=== PATIENT | female | born 1990 | race Caucasian/White ===

== ENCOUNTER 2018-04-26 20:51 | Emergency (ER) | payer BC, MEDICAID ==
[~2018-04-26] VITALS: Ht 167.6 cm; Wt 106.3 kg
[~2018-04-26 20:51] MED LIST: HYDR-3240 PO; SUCR1TAB33 PO
[2018-04-26 20:55] VITALS: BP 139/90
== END 2018-04-26 22:15 | disposition home or self-care (01) ==
LOC: ED 22:10
DX: G43.909 Migraine, unspecified, not intractable, without status migrainosus (principal); Z76.0 Encounter for issue of repeat prescription; Z90.49 Acquired absence of other specified parts of digestive tract
CPT/HCPCS: 99283

== ENCOUNTER 2018-07-24 13:19 | Inpatient (IN) | payer MEDICAID ==
[~2018-07-24] VITALS: Ht 167.6 cm; Wt 108.1 kg
[2018-07-24] MEDS ORDERED: CLINDAMYCIN 150 MG/ML, 6ML IV ONE ×2 (14:00→14:30)
[2018-07-24] MEDS ORDERED: VANCOMYCIN PER PHARMACY MC ONE (14:00)
[2018-07-24] MEDS ORDERED: ONDANSETRON 2MG/ML, 2ML IVPush ONE (14:00)
[2018-07-24] MEDS ORDERED: SODIUM CHLORIDE 0.9% 1,000ML IVBOLUS ONE (14:00)
[2018-07-24] MEDS ORDERED: ONDANSETRON ODT 4 MG ONE (14:17)
[2018-07-24] MEDS ORDERED: MORPHINE SULFATE 4 MG/ML, 1ML ONE (14:17)
[2018-07-24 14:20] LABS: BASOPHILS # (AUTO) 0.02 x10^3/uL (0-0.1); BASOPHILS % (AUTO) 0 % (0-1); EOSINOPHILS # (AUTO) 0.03 x10^3/uL (0-0.4); EOSINOPHILS % (AUTO) 1 % (1-7); LYMPHOCYTES # (AUTO) 0.91 x10^3/uL (1-3.4); LYMPHOCYTES % (AUTO) 13 % (22-44); MD NO; MEAN CORPUSCULAR HEMOGLOBIN 30.8 pg (27.0-34.8); MEAN CORPUSCULAR HGB CONC 34.4 g/dL (32.4-35.8); MEAN CORPUSCULAR VOLUME 89.6 fL (80-100); MEAN PLATELET VOLUME 8.1 fL (7.4-10.4); MONOCYTES # (AUTO) 0.35 x10^3/uL (0.2-0.8); MONOCYTES % (AUTO) 5 % (2-9); NEUTROPHILS # (AUTO) 5.81 x10^3/uL (1.8-6.8); NEUTROPHILS % (AUTO) 82 % (42-75); PLATELET COUNT 280 x10^3/uL (130-400); RED BLOOD COUNT 5.02 x10^6/uL (3.82-5.3); RED CELL DISTRIBUTION WIDTH 13.3 % (9.6-15.2)
[2018-07-24] MEDS ORDERED: CLINDAMYCIN PMX 900MG/50ML 50 ML IV ONE (14:30)
[2018-07-24] MEDS ORDERED: CLINDAMYCIN PMX 600MG/50ML 50 ML IV ONE (14:30)
[2018-07-24] MEDS ORDERED: VANCOMYCIN 1,500 MG in SODIUM CHLORIDE 0.9% 250 ML IV ONE (14:30)
[2018-07-24] MEDS ORDERED: MORPHINE SULFATE 4 MG/ML, 1ML IVPush ONE (14:30)
[2018-07-24 14:32] LABS: ALANINE AMINOTRANSFERASE 28 U/L (12-78); ALBUMIN 3.9 g/dL (3.4-5.0); ANION GAP 4 mmol/L (5-15); CALCIUM 8.4 mg/dL (8.5-10.1); CHLORIDE 107 mmol/L (98-107)
[2018-07-24 14:37] LABS: ALKALINE PHOSPHATASE 79 U/L (45-117); BILIRUBIN,TOTAL 0.8 mg/dL (0.2-1.0); CREATININE 0.76 mg/dL (0.55-1.02); TOTAL PROTEIN 7.8 g/dL (6.4-8.2)
[2018-07-24] MEDS ORDERED: OMNIPAQUE 350 MG/ML, 100ML BOTTLE ONE (15:03)
[2018-07-24 15:11] LABS: MICROSCOPIC INDICATED
[2018-07-24 15:19] LABS: CULTURE INDICATED? YES
[2018-07-24 16:58] LABS: CLUE CELLS NONE SEEN (NONE SEEN); WET PREP WBCS MANY (FEW)
[2018-07-24] MEDS ORDERED: ONDANSETRON 2MG/ML, 2ML IVPush PRN (17:30)
[2018-07-24] MEDS: SODIUM CHLORIDE 0.9% 1,000 ML IV SCH (18:07)
[2018-07-24] MEDS: KETOROLAC 30 MG/1 ML IV PRN (18:07)
[2018-07-24 18:10] VITALS: BP 112/75
[2018-07-24] MEDS: PIPERACILLIN/TAZO/PMX 3.375GM 50 ML IV SCH (18:34)
[2018-07-24] MEDS: DIPHENHYDRAMINE 25 MG CAPSULE PO PRN (21:24)
[2018-07-24] MEDS: LINEZOLID PMX 600MG/300ML 300 ML IV SCH (21:28)
[2018-07-24 21:29] VITALS: BP 99/64
[2018-07-25] MEDS: PIPERACILLIN/TAZO/PMX 3.375GM 50 ML IV SCH ×4 (00:22→17:45)
[2018-07-25] MEDS: KETOROLAC 30 MG/1 ML IV PRN ×3 (00:22→16:28)
[2018-07-25 00:28] VITALS: BP 101/67
[2018-07-25] MEDS: SODIUM CHLORIDE 0.9% 1,000 ML IV SCH ×3 (03:01→21:17)
[2018-07-25 05:42] LABS: ALANINE AMINOTRANSFERASE 39 U/L (12-78); ALBUMIN 2.7 g/dL (3.4-5.0); CHLORIDE 112 mmol/L (98-107); CREATININE 0.67 mg/dL (0.55-1.02)
[2018-07-25 05:45] LABS: ALKALINE PHOSPHATASE 71 U/L (45-117); BILIRUBIN,TOTAL 0.6 mg/dL (0.2-1.0); TOTAL PROTEIN 5.5 g/dL (6.4-8.2)
[2018-07-25 05:46] LABS: BASOPHILS # (AUTO) 0.02 x10^3/uL (0-0.1); BASOPHILS % (AUTO) 1 % (0-1); EOSINOPHILS # (AUTO) 0.04 x10^3/uL (0-0.4); EOSINOPHILS % (AUTO) 1 % (1-7); LYMPHOCYTES # (AUTO) 0.99 x10^3/uL (1-3.4); LYMPHOCYTES % (AUTO) 29 % (22-44); MD NO; MEAN CORPUSCULAR HEMOGLOBIN 31.2 pg (27.0-34.8); MEAN CORPUSCULAR HGB CONC 34.8 g/dL (32.4-35.8); MEAN CORPUSCULAR VOLUME 89.6 fL (80-100); MEAN PLATELET VOLUME 8.1 fL (7.4-10.4); MONOCYTES # (AUTO) 0.26 x10^3/uL (0.2-0.8); MONOCYTES % (AUTO) 8 % (2-9); NEUTROPHILS # (AUTO) 2.06 x10^3/uL (1.8-6.8); NEUTROPHILS % (AUTO) 61 % (42-75); PLATELET COUNT 183 x10^3/uL (130-400); RED BLOOD COUNT 3.91 x10^6/uL (3.82-5.3); RED CELL DISTRIBUTION WIDTH 13.3 % (9.6-15.2)
[2018-07-25 06:20] LABS: ANION GAP 4 mmol/L (5-15); CALCIUM 7.2 mg/dL (8.5-10.1)
[2018-07-25 07:13] VITALS: BP 119/77
[2018-07-25] MEDS: LINEZOLID PMX 600MG/300ML 300 ML IV SCH ×2 (09:20→21:17)
[2018-07-25 11:52] LABS: CLOSTRIDIUM DIFFICILE ANTIGEN POSITIVE; CLOSTRIDIUM DIFFICILE TOXIN NEGATIVE (Negative)
[2018-07-25 13:53] VITALS: BP 139/79
[2018-07-25] MEDS: VANCOMYCIN 50 MG/ML ORAL SUSP PO SCH ×2 (13:58→17:45)
[2018-07-25 20:16] VITALS: BP 115/76
[2018-07-26] MEDS: PIPERACILLIN/TAZO/PMX 3.375GM 50 ML IV SCH ×4 (00:18→19:43)
[2018-07-26] MEDS: VANCOMYCIN 50 MG/ML ORAL SUSP PO SCH ×4 (00:18→18:44)
[2018-07-26 00:22] VITALS: BP 123/78
[2018-07-26] MEDS: KETOROLAC 30 MG/1 ML IV PRN ×3 (01:11→23:30)
[2018-07-26] MEDS: SODIUM CHLORIDE 0.9% 1,000 ML IV SCH ×2 (05:44→16:09)
[2018-07-26 07:33] VITALS: BP 104/68
[2018-07-26] MEDS: [UNRECOGNIZED DRUG - OTHER] PO SCH (09:00)
[2018-07-26] MEDS ORDERED: ONDANSETRON ODT 4 MG ONE (09:08)
[2018-07-26] MEDS: VENLAFAXINE 75 MG CAP ER PO SCH (09:11)
[2018-07-26] MEDS: LINEZOLID PMX 600MG/300ML 300 ML IV SCH ×2 (09:11→21:48)
[2018-07-26 13:25] VITALS: BP 102/61
[2018-07-26 19:46] VITALS: BP 139/80
[2018-07-27] MEDS: VANCOMYCIN 50 MG/ML ORAL SUSP PO SCH ×2 (01:16→06:41)
[2018-07-27] MEDS: PIPERACILLIN/TAZO/PMX 3.375GM 50 ML IV SCH ×2 (01:16→06:41)
[2018-07-27] MEDS: SODIUM CHLORIDE 0.9% 1,000 ML IV SCH ×2 (01:17→07:56)
[2018-07-27 01:21] VITALS: BP 119/80
[2018-07-27] MEDS: DIPHENHYDRAMINE 25 MG CAPSULE PO PRN (01:27)
[2018-07-27] MEDS ORDERED: ONDANSETRON ODT 4 MG ONE (07:13)
[2018-07-27 07:15] VITALS: BP 111/64
[2018-07-27] MEDS: KETOROLAC 30 MG/1 ML IV PRN (07:20)
[2018-07-27] MEDS: [UNRECOGNIZED DRUG - OTHER] PO SCH (09:00)
[2018-07-27] MEDS: VENLAFAXINE 75 MG CAP ER PO SCH (09:00)
[2018-07-27] MEDS: LINEZOLID PMX 600MG/300ML 300 ML IV SCH (09:01)
[2018-07-27] MEDS ORDERED: SULF1TAB24 PO (11:14)
[2018-07-27] MEDS ORDERED: VANC1VIA3 PO (17:57)
== END 2018-07-27 12:55 | disposition home or self-care (01) | DRG 372 ==
LOC: ED 15:01 → EDIP 16:21 → 4WST 17:25
PROVIDERS: ADMIT Hospitalist; ATTEND Internal Medicine
PROC: 0T9B70Z Drainage of Bladder with Drainage Device, Via Natural or Artificial Opening (ICD-10-PCS; principal; 2018-07-24)
DX: A04.72 Enterocolitis due to Clostridium difficile, not specified as recurrent (principal); N10 Acute pyelonephritis; E86.9 Volume depletion, unspecified; N83.201 Unspecified ovarian cyst, right side; Z90.49 Acquired absence of other specified parts of digestive tract; Z98.51 Tubal ligation status; N93.9 Abnormal uterine and vaginal bleeding, unspecified; F32.9 Major depressive disorder, single episode, unspecified; F12.90 Cannabis use, unspecified, uncomplicated; Z88.8 Allergy status to other drugs, medicaments and biological substances
CPT/HCPCS: 36415; 99285; J3370; 71045; 74177; 80053; 81001; 83605; 83735; 84100; 84703; 85025; 87040; 87086; 87210; 87324; 87491; 87493; 87591; 87808; 93005; 96374; 96375; G0378; J1885; J2020; J2405; J2543; Q9967; J7030; J7050; Q0163

== ENCOUNTER → 2018-09-21 | Outpatient (CLI) | payer MEDICAID ==
[~2018-09-21] MED LIST changes: +GADOBUTROL 10 MMOL/10 ML PFS ONE; +SULF1TAB24 PO; +VANC1VIA3 PO
== END | disposition home or self-care (01) ==
LOC: CFH 10:00
PROVIDERS: ATTEND Registered Nurse
DX: F32.2 Major depressive disorder, single episode, severe without psychotic features (principal)
CPT/HCPCS: 70553; A9585

== ENCOUNTER 2019-01-28 13:38 | Outpatient (CLI) | payer MEDICAID ==
[~2019-01-28 13:38] MED LIST changes: -GADOBUTROL 10 MMOL/10 ML PFS ONE
[2019-01-28] MEDS ORDERED: Will bring list DOS (14:10)
[2019-02-09] MEDS ORDERED: HYDROmorphone 2 MG/ML, 1ML IVPush PRN (13:30)
[2019-02-09] MEDS ORDERED: OXYcodone 5 MG/5 ML ORAL.SOL UDC PO PRN (13:30)
[2019-02-09] MEDS ORDERED: FENTANYL PF 100 MCG/2ML IV PRN (13:30)
[2019-02-09] MEDS ORDERED: hydrALAzine 20 MG/ML, 1ML IV PRN (13:30)
[2019-02-09] MEDS ORDERED: PROMETHAZINE 25 MG/ML, 1ML IV PRN (13:30)
[2019-02-09] MEDS ORDERED: PROCHLORPERAZINE 5 MG/ML, 2ML IV PRN (13:30)
[2019-02-09] MEDS ORDERED: DIPHENHYDRAMINE 50 MG/ML, 1ML IVPush PRN (13:30)
[2019-02-09] MEDS ORDERED: MEPERIDINE/PF 25MG/0.5ML IVPush PRN (13:30)
[2019-02-09] MEDS ORDERED: LABETALOL 5MG/ML, 20ML IV PRN (13:30)
[2019-02-09] MEDS ORDERED: METOPROLOL 1 MG/ML, 5ML IV PRN (13:30)
[2019-02-09] MEDS ORDERED: HALOPERIDOL 5 MG/ML IV PRN (13:30)
== END 2019-01-28 23:59 | disposition home or self-care (01) ==
LOC: STAR 13:38
PROVIDERS: ATTEND Specialist
DX: Z02.9 Encounter for administrative examinations, unspecified (principal)

== ENCOUNTER 2019-02-09 13:26 | Inpatient (IN) | payer MEDICAID ==
[~2019-02-09] VITALS: Ht 167.6 cm; Wt 108.3 kg
[~2019-02-09 13:26] MED LIST changes: +Will bring list DOS
[2019-02-09] MEDS ORDERED: LACTATED RINGERS 1,000 ML IV SCH (13:40)
[2019-02-09] MEDS ORDERED: GABAPENTIN 300 MG CAPSULE PO ONE (14:00)
[2019-02-09] MEDS ORDERED: ACETAMINOPHEN 500 MG TABLET PO ONE (14:00)
[2019-02-09 14:01] VITALS: BP 128/90
[2019-02-09] MEDS ORDERED: GABA300C10 PO (14:06)
[2019-02-09] MEDS ORDERED: [UNRECOGNIZED DRUG - OTHER] PO (14:06)
[2019-02-09] MEDS ORDERED: ZOLP10TA5 PO (14:06)
[2019-02-09] MEDS ORDERED: VENL75TA2 PO (14:06)
[2019-02-09] MEDS ORDERED: CYCL-259 PO (14:06)
[2019-02-09] MEDS ORDERED: LAMO25TA6 PO (14:06)
[2019-02-09 14:09] LABS: HCG UR SG 1.022 (1.003-1.030)
[2019-02-09] MEDS ORDERED: PHENAZOPYRIDINE 200 MG TABLET PO ONE (14:30)
[2019-02-09] MEDS ORDERED: BUPIVACAINE/PF 0.25% ONE (15:08)
[2019-02-09] MEDS ORDERED: EPINEPHRINE 1 MG/ML, 1ML ONE (15:08)
[2019-02-09] MEDS ORDERED: FLUORESCEIN SODIUM 500 MG/5 ML ONE (15:08)
[2019-02-09] MEDS ORDERED: FENTANYL PF 250 MCG/5ML ONE (15:18)
[2019-02-09] MEDS ORDERED: MIDAZOLAM 1 MG/ML, 2ML ONE (15:18)
[2019-02-09] MEDS ORDERED: HYDROmorphone 2 MG/ML, 1ML IVPush PRN (17:00)
[2019-02-09] MEDS ORDERED: MEPERIDINE/PF 25MG/0.5ML IVPush PRN (17:00)
[2019-02-09] MEDS ORDERED: OXYcodone 5 MG/5 ML ORAL.SOL UDC PO PRN (17:00)
[2019-02-09] MEDS ORDERED: ONDANSETRON 2MG/ML, 2ML IV PRN (17:00)
[2019-02-09] MEDS ORDERED: ONDANSETRON ODT 8 MG PO PRN (17:00)
[2019-02-09] MEDS ORDERED: PROMETHAZINE 25 MG/ML, 1ML IV PRN (17:00)
[2019-02-09] MEDS ORDERED: DIAZEPAM 5 MG/ML, 2ML IVPush PRN (17:00)
[2019-02-09] MEDS ORDERED: LORazepam 2 MG/ML, 1ML IVPush PRN (17:00)
[2019-02-09] MEDS ORDERED: ONDANSETRON 2MG/ML, 2ML ONE (18:28)
[2019-02-09] MEDS ORDERED: CEFAZOLIN 1,000 MG ONE (18:28)
[2019-02-09] MEDS ORDERED: NEOSTIGMINE 1 MG/ML, 10ML ONE (18:28)
[2019-02-09] MEDS ORDERED: ROCURONIUM 10MG/ML,5ML ONE (18:28)
[2019-02-09] MEDS ORDERED: PROPOFOL 10 MG/ML, 20ML ONE (18:28)
[2019-02-09] MEDS ORDERED: GLYCOPYRROLATE 0.2MG/1ML, 5ML ONE (18:28)
[2019-02-09] MEDS ORDERED: SUCCINYLCHOLINE 20 MG/ML, 10ML ONE (18:28)
[2019-02-09] MEDS ORDERED: KETOROLAC 30 MG/1 ML ONE (18:32)
[2019-02-09] MEDS ORDERED: LORazepam 2 MG/ML, 1ML ONE (18:41)
[2019-02-09] MEDS ORDERED: FENTANYL PF 100 MCG/2ML ONE ×2 (18:41→18:44)
[2019-02-09] MEDS ORDERED: OXYcodone 5 MG/5 ML ORAL.SOL UDC ONE ×2 (18:41→18:44)
[2019-02-09] MEDS: FENTANYL PF 100 MCG/2ML IV PRN ×2 (18:44→19:00)
[2019-02-09] MEDS ORDERED: HYDROmorphone 1 MG/ML, 1ML ONE ×2 (18:44)
[2019-02-09 20:00] VITALS: BP 124/81
[2019-02-09] MEDS ORDERED: MEPERIDINE/PF 100 MG/ML IM PRN (20:30)
[2019-02-09] MEDS: HYDROmorphone 2 MG/ML, 1ML IV PRN ×2 (21:07→21:30)
[2019-02-09] MEDS: LORazepam 2 MG/ML, 1ML IVPush PRN (22:18)
[2019-02-09] MEDS: SIMETHICONE 80 MG CHEW TAB PO SCH (22:53)
[2019-02-09] MEDS: KETOROLAC 30 MG/1 ML IV SCH (22:55)
[2019-02-09] MEDS: CEFAZOLIN PMX 2GM/50ML 50 ML IVPB SCH (22:56)
[2019-02-09] MEDS: OXYcodone 5 MG/5 ML ORAL.SOL UDC PO PRN (23:04)
[2019-02-09] MEDS: ONDANSETRON 2MG/ML, 2ML IV PRN (23:57)
[2019-02-10 00:30] VITALS: BP 112/74
[2019-02-10] MEDS: HYDROmorphone 2 MG/ML, 1ML IV PRN (01:51)
[2019-02-10] MEDS: LORazepam 2 MG/ML, 1ML IVPush PRN ×3 (04:00→15:54)
[2019-02-10] MEDS: POTASSIUM CHLORIDE 20 MEQ in D5%-LACTATED RINGERS 1,000 ML IV SCH ×4 (04:12→22:32)
[2019-02-10 04:21] VITALS: BP 126/87
[2019-02-10] MEDS: KETOROLAC 30 MG/1 ML IV SCH ×3 (06:43→16:45)
[2019-02-10] MEDS: CEFAZOLIN PMX 2GM/50ML 50 ML IVPB SCH (06:44)
[2019-02-10 07:07] VITALS: BP 119/73
[2019-02-10] MEDS: ONDANSETRON 2MG/ML, 2ML IV PRN ×2 (08:23→20:16)
[2019-02-10] MEDS: SIMETHICONE 80 MG CHEW TAB PO SCH ×3 (08:23→20:13)
[2019-02-10] MEDS ORDERED: OPIUM/BELLADONNA SUPP.RECT 16.2-30 MG PR PRN ×2 (08:30→09:30)
[2019-02-10] MEDS ORDERED: SCOPOLAMINE PATCH, 1.5MG PATCH.TD72 TD SCH (08:30)
[2019-02-10 13:27] VITALS: BP 114/72
[2019-02-10] MEDS: OXYcodone 5 MG/5 ML ORAL.SOL UDC PO PRN ×3 (14:51→22:31)
[2019-02-10] MEDS ORDERED: DEXAMETHASONE 4 MG/ML, 1ML ONE (16:22)
[2019-02-10 20:28] VITALS: BP 126/73
[2019-02-10] MEDS ORDERED: VENLAFAXINE XR 37.5MG CAP.ER.24H HOMEMEDPO SCH (21:00)
[2019-02-10] MEDS ORDERED: LAMOTRIGINE 25 MG TABLET HOMEMEDPO SCH (21:00)
[2019-02-10] MEDS: LORazepam 0.5MG TABLET PO SCH (22:30)
[2019-02-10] MEDS ORDERED: IBUPROFEN 200 MG TABLET PO PRN (23:00)
[2019-02-11 00:54] VITALS: BP 123/83
[2019-02-11] MEDS: LORazepam 0.5MG TABLET PO SCH ×2 (04:00→10:02)
[2019-02-11] MEDS: POTASSIUM CHLORIDE 20 MEQ in D5%-LACTATED RINGERS 1,000 ML IV SCH ×2 (04:50→12:55)
[2019-02-11] MEDS: OXYcodone 5 MG/5 ML ORAL.SOL UDC PO PRN ×3 (05:51→14:52)
[2019-02-11 08:00] VITALS: BP 124/76
[2019-02-11] MEDS: SIMETHICONE 80 MG CHEW TAB PO SCH (08:03)
[2019-02-11] MEDS ORDERED: FAMOTIDINE 20 MG TABLET PO PRN (12:30)
[2019-02-11] MEDS ORDERED: OXYC5CAP2 PO (14:47)
[2019-02-11] MEDS ORDERED: IBUP-1222 PO (14:50)
[2019-02-11] MEDS ORDERED: LORA-445 PO (14:50)
[2019-02-11] MEDS: ONDANSETRON 2MG/ML, 2ML IV PRN (14:52)
[2019-02-11] MEDS ORDERED: SCOP1PAT11 TD (14:56)
[2019-02-11 14:59] VITALS: BP 122/76
== END 2019-02-11 15:33 | disposition home or self-care (01) | DRG 743 ==
LOC: OR 13:26 → 4NOR 19:55 → OR 23:17 → 4NOR 23:19 → OBSVTOIN 23:19 → DCLOUNGE 02-11 15:10
PROVIDERS: ADMIT Specialist; ATTEND Specialist
PROC: 0UT7FZZ Resection of Bilateral Fallopian Tubes, Via Natural or Artificial Opening With Percutaneous Endoscopic Assistance (ICD-10-PCS; 2019-02-09)
PROC: 0TJB8ZZ Inspection of Bladder, Via Natural or Artificial Opening Endoscopic (ICD-10-PCS; 2019-02-09)
PROC: 0UT9FZZ Resection of Uterus, Via Natural or Artificial Opening With Percutaneous Endoscopic Assistance (ICD-10-PCS; principal; 2019-02-09 15:30)
DX: N92.0 Excessive and frequent menstruation with regular cycle (principal); E28.2 Polycystic ovarian syndrome; G43.909 Migraine, unspecified, not intractable, without status migrainosus; N13.70 Vesicoureteral-reflux, unspecified; N94.6 Dysmenorrhea, unspecified; E66.9 Obesity, unspecified; Z79.890 Hormone replacement therapy; Z88.2 Allergy status to sulfonamides; Z98.51 Tubal ligation status; Z68.38 Body mass index [BMI] 38.0-38.9, adult
CPT/HCPCS: 36415; J3490; J7121; 81025; 85014; 85018; 88307; G0378; J0171; J0690; J1100; J1170; J1885; J2250; J2405; J2704; J2710; J3010; J3480; J0330; J2060; J7120

== ENCOUNTER 2020-03-18 11:16 | Inpatient (IN) | payer MEDICAID ==
[~2020-03-18] VITALS: Ht 167.6 cm; Wt 67.9 kg
[~2020-03-18 11:16] MED LIST changes: +CYCL-259 PO; +GABA300C10 PO; +IBUP-1222 PO; +LAMO25TA6 PO; +LORA-445 PO; +OXYC5CAP2 PO; +SCOP1PAT11 TD; +VENL75TA2 PO; +ZOLP10TA5 PO; +[UNRECOGNIZED DRUG - OTHER] PO
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
[2020-03-18] MEDS ORDERED: SODIUM CHLORIDE 0.9% 1,000ML IVBOLUS ONE (11:30)
[2020-03-18 11:59] LABS: ALANINE AMINOTRANSFERASE 20 U/L (12-78); ALBUMIN 3.9 g/dL (3.4-5.0); ANION GAP 16 mmol/L (5-15); CHLORIDE 107 mmol/L (98-107); CREATININE 1.18 mg/dL (0.55-1.02)
[2020-03-18 12:00] LABS: BASOPHILS % (AUTO) 0 % (0-1); EOSINOPHILS % (AUTO) 0 % (1-7); LYMPHOCYTES # (AUTO) 0.55 x10^3/uL (1-3.4); LYMPHOCYTES % (AUTO) 4 % (22-44); MD NO; MEAN CORPUSCULAR HEMOGLOBIN 31.7 pg (27.0-34.8); MEAN CORPUSCULAR HGB CONC 33.6 g/dL (32.4-35.8); MEAN CORPUSCULAR VOLUME 94.4 fL (80-100); MEAN PLATELET VOLUME 7.9 fL (7.4-10.4); MONOCYTES # (AUTO) 0.24 x10^3/uL (0.2-0.8); MONOCYTES % (AUTO) 2 % (2-9); NEUTROPHILS # (AUTO) 11.95 x10^3/uL (1.8-6.8); NEUTROPHILS % (AUTO) 94 % (42-75); PLATELET COUNT 302 x10^3/uL (130-400); RED BLOOD COUNT 4.39 x10^6/uL (3.82-5.3); RED CELL DISTRIBUTION WIDTH 12.6 % (9.6-15.2)
--- NOTE | 2020-03-18 12:02 | NUR ---
PT AROUSES TO VOICE, ON MONITOR VSS
[2020-03-18 12:04] LABS: ALKALINE PHOSPHATASE 69 U/L (45-117); BILIRUBIN,TOTAL 0.4 mg/dL (0.2-1.0); TOTAL PROTEIN 7.4 g/dL (6.4-8.2)
[2020-03-18 12:06] LABS: SALICYLATE LEVEL < 1.7 mg/dL (2.8-20.0)
--- NOTE | 2020-03-18 13:13 | NUR ---
Report from Camilo CAGLE. Pt resting in bed, resp even and unlabored, NADN. Continuous oxygen monitor in place, all safety measures observed.
--- NOTE | 2020-03-18 13:39 | NUR ---
pt mom: Batsheva [phone]
--- NOTE | 2020-03-18 13:45 | NUR ---
Pt shouting unintelligible words and spitting on floor. Pt encouraged to spit into emesis bag provided instead. Pt continues to yell and spit on floor. Pt again advised that this behavior will not be tolerated. Pt now holding emesis bag to spit into, all safety measures observed.
--- NOTE | 2020-03-18 14:01 | NUR ---
Pt again shouting at staff members. Pt advised that she can press the call button if she needs assistance and doesn't need to shout. Warm blanket provided to pt as she has thrown her other one on the floor. Pt has removed pulse ox, BP cuff and monitoring tech. Pt refusing to allow this RN or other staff to reapply monitors. Pt able to position self for comfort in bed, denies other needs.
[2020-03-18] MEDS ORDERED: LORazepam 2 MG/ML, 1ML ONE (14:26)
--- NOTE | 2020-03-18 14:27 | NUR ---
Pt screaming in bed, kicking her leg against the rail. Attempted to provide verbal reassurance to pt without good effect. Pt continues screaming. Multiple staff members at bedside attempting to calm pt and redirect her. Pt advised that she may hurt herself if she continues kicking her leg against the bed rail. Pt continues behavior. Security contacted, hard restraints placed x4. Continuous oxygen monitor and BP cuff reapplied, all safety measures observed. MD made aware of pt condition, orders for 2mg Ativan IM received. Pt medicated per order.
[2020-03-18] MEDS ORDERED: LORazepam 2 MG/ML, 1ML IVPush ONE (14:30)
[2020-03-18] MEDS ORDERED: HALOPERIDOL 5 MG/ML ONE (14:55)
[2020-03-18] MEDS ORDERED: HALOPERIDOL 5 MG/ML IM ONE (15:00)
--- NOTE | 2020-03-18 15:16 | NUR ---
Pt continues with intermittent outbursts of shouting and kicking, restraints remain in place, will continue to monitor.
--- NOTE | 2020-03-18 16:00 | NUR ---
Pt appears more calm. No longer continues kicking, screaming, agitation. Restraints released. All monitors remain in place at this time.
--- NOTE | 2020-03-18 17:00 | NUR ---
Pt continues resting in bed with eyes closed, resp even and unlabored, NADN.
--- NOTE | 2020-03-18 18:24 | NUR ---
Pt continues resting in bed with eyes closed, resp even and unlabored, NADN.
--- NOTE | 2020-03-18 18:25 | NUR ---
Unable to complete med rec due to pt condition.
--- NOTE | 2020-03-18 18:45 | NUR ---
REPORT FROM TSERING RUIZ. ASSUMING CARE AT THIS TIME.
--- NOTE | 2020-03-18 19:14 | NUR ---
pt resting in room with eyes closed and lights dimmed. tachy, vss. no distress noted. no needs expressed. call light within reach. will continue to monitor.
--- NOTE | 2020-03-18 20:21 | NUR ---
late entry: pt responds to voice with grunting and moaning. unable to ambulate at this time. tachy, vss.
--- NOTE | 2020-03-18 21:07 | NUR ---
[facility] ATTEMPTED TO AMBULATE PT, PT UNABLE TO AMBULATE AT THIS TIME.
--- NOTE | 2020-03-18 21:59 | NUR ---
pt responds to voice with grunting and moaning. unable to ambulate at this time. tachy, vss.
--- NOTE | 2020-03-18 22:12 | NUR ---
pt found to be attempting to dress. pt unable to stand or answer questions. pt only moans and grunts. pt unable to dress self and laid down on floor. pt unable to follow commands and refused to get back in bed. pt helped back into [place]. security called and pt placed back into 2 point restrains for safety. monitoring equipment replaced. vss.
--- NOTE | 2020-03-18 22:40 | NUR ---
pt to ct. Addendum: 03/18/20 at 2251 by [email or web address] with security.
--- NOTE | 2020-03-18 23:37 | NUR ---
pt back from ct. still arousable to voice, but confused. pt unable to ambulate at this time. vss. ct resulted. chart up for recheck. Addendum: 03/18/20 at 2339 by [email or web address] pt continues to attempt to get out of bed. pt remains in 2 point restraints for safety.
--- NOTE | 2020-03-19 00:39 | NUR ---
pt continues to attempt to get out of bed despite being in 2 point restraints. pt remains confused and is now vomiting bile that is blood-streaked. vss. edmd will be notified.
[2020-03-19] MEDS ORDERED: LORazepam 2 MG/ML, 1ML IVPush STA (00:44)
[2020-03-19] MEDS ORDERED: SODIUM CHLORIDE 0.9% 1,000 ML IV ONE (00:44)
--- NOTE | 2020-03-19 00:45 | NUR ---
late entry: pt drowsy and confused, but cooperative. pt states that she will stop attepting to get out of bed. pt aware of need for iv and is requesting medication for nausea. pt agrees to iv wtih medication. restraints removed.
[2020-03-19] MEDS ORDERED: ONDANSETRON 2MG/ML, 2ML IVPush ONE (01:00)
[2020-03-19] MEDS ORDERED: ONDANSETRON 2MG/ML, 2ML ONE ×2 (01:15→07:35)
[2020-03-19] MEDS ORDERED: LORazepam 2 MG/ML, 1ML ONE (01:15)
--- NOTE | 2020-03-19 01:24 | NUR ---
report to mitch verduzco. pt ready for transport.
[2020-03-19 01:56] VITALS: BP 104/68
[2020-03-19 02:55] LABS: BASOPHILS # (AUTO) 0.04 x10^3/uL (0-0.1); BASOPHILS % (AUTO) 0 % (0-1); EOSINOPHILS # (AUTO) 0.04 x10^3/uL (0-0.4); EOSINOPHILS % (AUTO) 0 % (1-7); LYMPHOCYTES # (AUTO) 1.71 x10^3/uL (1-3.4); LYMPHOCYTES % (AUTO) 15 % (22-44); MD NO; MEAN CORPUSCULAR HEMOGLOBIN 31.6 pg (27.0-34.8); MEAN CORPUSCULAR HGB CONC 33.7 g/dL (32.4-35.8); MEAN CORPUSCULAR VOLUME 93.9 fL (80-100); MEAN PLATELET VOLUME 8.1 fL (7.4-10.4); MONOCYTES # (AUTO) 0.57 x10^3/uL (0.2-0.8); MONOCYTES % (AUTO) 5 % (2-9); NEUTROPHILS # (AUTO) 8.86 x10^3/uL (1.8-6.8); NEUTROPHILS % (AUTO) 79 % (42-75); PLATELET COUNT 278 x10^3/uL (130-400); RED BLOOD COUNT 4.46 x10^6/uL (3.82-5.3); RED CELL DISTRIBUTION WIDTH 13.1 % (9.6-15.2)
[2020-03-19 02:56] LABS: ALANINE AMINOTRANSFERASE 22 U/L (12-78); ANION GAP 8 mmol/L (5-15); CALCIUM 9.3 mg/dL (8.5-10.1); CHLORIDE 109 mmol/L (98-107); CREATININE 0.74 mg/dL (0.55-1.02)
[2020-03-19 02:58] LABS: ALKALINE PHOSPHATASE 65 U/L (45-117); BILIRUBIN,TOTAL 0.4 mg/dL (0.2-1.0); TOTAL PROTEIN 7.6 g/dL (6.4-8.2)
[2020-03-19] MEDS ORDERED: CYCLOBENZAPRINE 10 MG TABLET PO SCH (03:30)
[2020-03-19] MEDS ORDERED: CYCLOBENZAPRINE MC SCH (03:30)
[2020-03-19] MEDS ORDERED: VENLAFAXINE HCL 75 MG PO SCH (03:30)
[2020-03-19] MEDS ORDERED: LAMOTRIGINE 25 MG PO SCH (03:30)
[2020-03-19] MEDS ORDERED: LAMOTRIGINE MC SCH (03:30)
[2020-03-19] MEDS ORDERED: VENLAFAXINE MC SCH (03:30)
[2020-03-19] MEDS ORDERED: LORazepam 0.5MG TABLET PO PRN (03:30)
[2020-03-19 07:33] VITALS: BP 104/70
[2020-03-19] MEDS ORDERED: ONDANSETRON ODT 4 MG ONE (07:39)
[2020-03-19] MEDS: ONDANSETRON 2MG/ML, 2ML IVPush PRN ×2 (07:45→17:13)
[2020-03-19] MEDS ORDERED: GABAPENTIN 300 MG CAPSULE PO SCH (09:00)
[2020-03-19] MEDS: LACTATED RINGERS 1,000 ML IV SCH ×2 (10:12→18:29)
[2020-03-19] MEDS: ENOXAPARIN 40 MG/0.4 ML SQ SCH (10:12)
[2020-03-19 10:16] LABS: FREE T4 (FREE THYROXINE) 1.18 ng/dL (0.76-1.46)
[2020-03-19 10:49] LABS: CULTURE INDICATED? YES; MICROSCOPIC INDICATED
[2020-03-19 10:58] LABS: AMPHETAMINE SCREEN, URINE Positive (Negative); BARBITURATE SCREEN, URINE Negative (Negative); BENZODIAZEPINE SCREEN, URINE Positive (Negative); CANNABINOID SCREEN, URINE Negative (Negative); COCAINE SCREEN, URINE Negative (Negative); METHADONE SCREEN, URINE Negative (Negative); OPIATE SCREEN, URINE Negative (Negative)
[2020-03-19 13:18] VITALS: BP 117/79
[2020-03-19] MEDS ORDERED: CEFTRIAXONE PMX 1GM/50ML 50 ML IV SCH (17:00)
[2020-03-19 19:57] VITALS: BP 107/73
[2020-03-19] MEDS: IBUPROFEN 600 MG TABLET PO PRN (21:06)
[2020-03-20 00:55] VITALS: BP 110/64
[2020-03-20] MEDS: IBUPROFEN 600 MG TABLET PO PRN (04:46)
[2020-03-20] MEDS: LACTATED RINGERS 1,000 ML IV SCH ×2 (04:47→16:09)
[2020-03-20 06:22] LABS: BASOPHILS # (AUTO) 0.03 x10^3/uL (0-0.1); BASOPHILS % (AUTO) 1 % (0-1); EOSINOPHILS # (AUTO) 0.04 x10^3/uL (0-0.4); EOSINOPHILS % (AUTO) 1 % (1-7); LYMPHOCYTES # (AUTO) 2.51 x10^3/uL (1-3.4); LYMPHOCYTES % (AUTO) 45 % (22-44); MD NO; MEAN CORPUSCULAR HEMOGLOBIN 32.1 pg (27.0-34.8); MEAN CORPUSCULAR HGB CONC 34.3 g/dL (32.4-35.8); MEAN CORPUSCULAR VOLUME 93.5 fL (80-100); MONOCYTES # (AUTO) 0.25 x10^3/uL (0.2-0.8); MONOCYTES % (AUTO) 5 % (2-9); NEUTROPHILS # (AUTO) 2.74 x10^3/uL (1.8-6.8); NEUTROPHILS % (AUTO) 49 % (42-75); PLATELET COUNT 209 x10^3/uL (130-400); RED BLOOD COUNT 3.46 x10^6/uL (3.82-5.3); RED CELL DISTRIBUTION WIDTH 12.9 % (9.6-15.2)
[2020-03-20 06:53] LABS: ANION GAP 6 mmol/L (5-15); CALCIUM 8.3 mg/dL (8.5-10.1); CHLORIDE 109 mmol/L (98-107); CREATININE 0.68 mg/dL (0.55-1.02)
[2020-03-20 07:18] VITALS: BP 106/69
[2020-03-20] MEDS: ENOXAPARIN 40 MG/0.4 ML SQ SCH (09:26)
[2020-03-20] MEDS ORDERED: POTASSIUM CHLORIDE 40 MEQ in SODIUM CHLORIDE 0.9% 500 ML IV ONE (09:30)
[2020-03-20] MEDS: CEFDINIR 300 MG CAPSULE PO SCH ×2 (10:49→20:18)
[2020-03-20 13:27] VITALS: BP 102/67
[2020-03-20] MEDS ORDERED: POTASSIUM CHLORIDE 20 MEQ TAB.ER.PRT PO SCH (17:00)
[2020-03-20 18:40] VITALS: BP 101/67
[2020-03-21 01:21] VITALS: BP 120/81
[2020-03-21] MEDS: LACTATED RINGERS 1,000 ML IV SCH (03:59)
[2020-03-21 06:11] LABS: ALBUMIN 2.7 g/dL (3.4-5.0); ANION GAP 3 mmol/L (5-15); CALCIUM 8.2 mg/dL (8.5-10.1); CHLORIDE 110 mmol/L (98-107)
[2020-03-21 06:14] LABS: ALANINE AMINOTRANSFERASE 16 U/L (12-78); ALKALINE PHOSPHATASE 57 U/L (45-117); BILIRUBIN,TOTAL 0.4 mg/dL (0.2-1.0); CREATININE 0.56 mg/dL (0.55-1.02); TOTAL PROTEIN 5.5 g/dL (6.4-8.2)
[2020-03-21 08:08] VITALS: BP 104/68
[2020-03-21] MEDS ORDERED: POTASSIUM CHLORIDE 20 MEQ TAB.ER.PRT PO SCH (09:00)
[2020-03-21] MEDS: CEFDINIR 300 MG CAPSULE PO SCH (09:16)
[2020-03-21] MEDS: ENOXAPARIN 40 MG/0.4 ML SQ SCH (09:16)
[2020-03-21 13:13] VITALS: BP 110/73
[2020-03-21] MEDS ORDERED: CEFD300C37 PO (14:13)
[2020-03-21] MEDS ORDERED: POTA20TA6 PO (14:13)
== END 2020-03-21 15:05 | DRG 917 ==
LOC: ED 15:25 → EDIP 03-19 00:50 → 4WST 03-19 01:51
PROVIDERS: ATTEND Internal Medicine
PROC: 0T9B70Z Drainage of Bladder with Drainage Device, Via Natural or Artificial Opening (ICD-10-PCS; principal; 2020-03-19)
DX: T43.622A Poisoning by amphetamines, intentional self-harm, initial encounter (principal); G92 Toxic encephalopathy; N17.0 Acute kidney failure with tubular necrosis; N39.0 Urinary tract infection, site not specified; E87.2 Acidosis; F11.20 Opioid dependence, uncomplicated; F15.20 Other stimulant dependence, uncomplicated; F33.2 Major depressive disorder, recurrent severe without psychotic features; R45.851 Suicidal ideations; Y92.89 Other specified places as the place of occurrence of the external cause; B96.20 Unspecified Escherichia coli [E. coli] as the cause of diseases classified elsewhere; E87.6 Hypokalemia; F17.210 Nicotine dependence, cigarettes, uncomplicated; Z63.8 Other specified problems related to primary support group; Z91.5 Personal history of self-harm; Z79.899 Other long term (current) drug therapy; Z88.2 Allergy status to sulfonamides; Z88.5 Allergy status to narcotic agent; Z82.5 Family history of asthma and other chronic lower respiratory diseases; Z90.89 Acquired absence of other organs
CPT/HCPCS: 36415; 70450; 80048; 80053; 80307; 81001; 82607; 84439; 84443; 84481; 84703; 85025; 87077; 87086; 87186; 93005; 96374; G0378; J0696; J1650; J2405; J3480; J2060; J7030; J7040; J7120

== ENCOUNTER 2020-03-21 13:58 | Inpatient (IN) | payer MEDICAID ==
[~2020-03-21] VITALS: Ht 167.6 cm; Wt 68.9 kg
[2020-03-21] MEDS ORDERED: CEFD300C37 PO (14:13)
[2020-03-21] MEDS ORDERED: POTA20TA6 PO (14:13)
[2020-03-21] MEDS ORDERED: BISACODYL 10 MG SUPP PR PRN (15:00)
[2020-03-21] MEDS ORDERED: POLYETHYLENE GLYCOL 17 GM PACKET PO PRN (15:00)
[2020-03-21] MEDS ORDERED: ONDANSETRON ODT 4 MG PO PRN (15:00)
[2020-03-21] MEDS ORDERED: DOCUSATE 100 MG CAPSULE PO PRN (15:00)
[2020-03-21] MEDS ORDERED: PLEASE ENTER HEIGHT AND WEIGHT MC SCH (16:00)
[2020-03-21 16:41] VITALS: BP 127/92
[2020-03-21] MEDS: NICOTINE 7 MG/24 HR PATCH.TD24 TD SCH (17:02)
[2020-03-21] MEDS: metFORMIN 850 MG TABLET PO SCH (17:52)
[2020-03-21 19:50] VITALS: BP 123/82
[2020-03-21] MEDS: HYDROXYZINE PAMOATE 25MG CAP PO PRN (20:48)
[2020-03-22 06:37] LABS: CHOL/HDL RATIO 3.2; LDL/HDL RATIO 1.7 (0.5-3.0)
[2020-03-22 07:00] VITALS: BP 118/78
[2020-03-22] MEDS: metFORMIN 850 MG TABLET PO SCH ×2 (09:01→17:42)
[2020-03-22] MEDS: HYDROXYZINE PAMOATE 25MG CAP PO PRN (09:14)
[2020-03-22] MEDS: ACETAMINOPHEN 325 MG TABLET PO PRN ×2 (09:14→17:42)
[2020-03-22] MEDS ORDERED: DIPHENHYDRAMINE 50 MG CAPSULE PO PRN (11:00)
[2020-03-22] MEDS: SERTRALINE 50MG TABLET PO SCH (12:15)
[2020-03-22] MEDS: NICOTINE 7 MG/24 HR PATCH.TD24 TD SCH (15:46)
[2020-03-22 19:53] VITALS: BP 125/87
[2020-03-23 07:51] VITALS: BP 113/80
[2020-03-23] MEDS: metFORMIN 850 MG TABLET PO SCH ×2 (08:42→18:08)
[2020-03-23] MEDS: SERTRALINE 50MG TABLET PO SCH (08:43)
[2020-03-23] MEDS: ACETAMINOPHEN 325 MG TABLET PO PRN ×2 (08:59→21:05)
[2020-03-23] MEDS: NICOTINE 7 MG/24 HR PATCH.TD24 TD SCH (15:41)
[2020-03-23 19:25] VITALS: BP 123/88
[2020-03-23] MEDS: MELATONIN 3 MG TABLET PO SCH (21:05)
[2020-03-24 07:00] VITALS: BP 114/76
[2020-03-24] MEDS: metFORMIN 850 MG TABLET PO SCH ×2 (09:16→17:26)
[2020-03-24] MEDS: SERTRALINE 50MG TABLET PO SCH (09:16)
[2020-03-24 19:15] VITALS: BP 116/76
[2020-03-24] MEDS: ACETAMINOPHEN 325 MG TABLET PO PRN (20:03)
[2020-03-24] MEDS: MELATONIN 3 MG TABLET PO SCH (20:03)
[2020-03-24] MEDS ORDERED: CARBAMAZEPINE 200 MG TABLET PO SCH (21:00)
[2020-03-25 07:55] VITALS: BP 113/75
[2020-03-25] MEDS: HYDROXYZINE PAMOATE 25MG CAP PO PRN (08:15)
[2020-03-25] MEDS: ACETAMINOPHEN 325 MG TABLET PO PRN (08:15)
[2020-03-25] MEDS: SERTRALINE 50MG TABLET PO SCH (08:15)
[2020-03-25] MEDS: metFORMIN 850 MG TABLET PO SCH (08:15)
[2020-03-25] MEDS ORDERED: SERT50TA28 PO (09:39)
[2020-03-25] MEDS ORDERED: METF850T PO (09:39)
[2020-03-25] MEDS ORDERED: MELA3TAB56 PO (09:39)
[2020-03-25] MEDS ORDERED: CARB200T4 PO (09:39)
== END 2020-03-25 10:00 | disposition home or self-care (01) | DRG 885 ==
LOC: 3E 15:37
PROVIDERS: ADMIT Psychiatry & Neurology Psychosomatic Medicine; ATTEND Psychiatry & Neurology Psychosomatic Medicine
DX: F33.2 Major depressive disorder, recurrent severe without psychotic features (principal); F15.20 Other stimulant dependence, uncomplicated; R45.851 Suicidal ideations; E28.2 Polycystic ovarian syndrome; F12.10 Cannabis abuse, uncomplicated; F17.200 Nicotine dependence, unspecified, uncomplicated; G47.00 Insomnia, unspecified; G89.29 Other chronic pain; Z79.899 Other long term (current) drug therapy; Z82.5 Family history of asthma and other chronic lower respiratory diseases; Z88.2 Allergy status to sulfonamides; Z91.5 Personal history of self-harm; Z90.49 Acquired absence of other specified parts of digestive tract; Z98.51 Tubal ligation status
CPT/HCPCS: 36415; 80061